=== PATIENT | male | born 2000 | race Two or more races ===

== ENCOUNTER 2020-08-13 16:12 | Outpatient (CLI) | payer OTHER | END 2020-08-13 17:14 | disposition home or self-care (01) | LOC: LAB 16:12 | DX: Z20.828 Contact with and (suspected) exposure to other viral communicable diseases (principal) ==

== ENCOUNTER 2020-10-06 06:40 | Outpatient (CLI) | payer OTHER | END 2020-10-06 08:49 | disposition home or self-care (01) | LOC: LAB 06:40 | PROVIDERS: ATTEND Emergency Medicine Pediatric Emergency Medicine | DX: Z20.828 Contact with and (suspected) exposure to other viral communicable diseases (principal) ==